=== PATIENT | male | born 1995 | race Caucasian/White ===

== ENCOUNTER 2016-05-30 14:22 | Emergency (ER) | payer OTHER ==
--- NOTE | 2016-05-30 14:39 | CPEKG ---
Heart Rate: 77 RR Interval: 779 P-R Interval: 144 QRSD Interval: 92 QT Interval: 376 QTC Interval: 426 P [place]: 18 QRS [place]: 44 T Wave [place]: 47 EKG Severity - NORMAL ECG - EKG Impression: SINUS RHYTHM EKG Impression: ST ELEV, PROBABLE NORMAL EARLY REPOL PATTERN Electronically Signed By: Mp Mary 30-May-2016 21:57:35
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
[2016-05-30] MEDS ORDERED: NS 1,000 ML IV ONE (15:09)
[2016-05-30] MEDS ORDERED: LORazepam 2 MG/ML INJ IVP ONE (15:09)
[2016-05-30] MEDS ORDERED: LORazepam 2 MG/ML INJ ONE (15:11)
[2016-05-30 15:19] LABS: % IMMATURE GRANULYOCYTES 0.7 % (0.0-1.1); ABSOLUTE IMMATURE GRANULOCYTES 0.08 10^3/uL (0.00-0.10); ADD DIFF? NO; ADD MORPH? NO; ADD SCAN? NO; ATYPICAL LYMPHOCYTE FLAG 10 (0-99); FRAGMENT RBC FLAG 0 (0-99); HEMATOCRIT 57.3 % (40.0-51.0); HEMOGLOBIN 18.7 g/dL (13.7-17.5); LEFT SHIFT FLG 0 (0-99); LIPEMIA HEMOLYSIS FLAG 80 (0-99); MEAN CELL HEMOGLOBIN 31.3 pg (27.9-34.1); MEAN CELL HEMOGLOBIN CONCENTR. 32.6 g/dL (32.4-36.7); MEAN CELL VOLUME 95.8 fL (81.5-99.8); MEAN PLATELET VOLUME 9.7 fL (8.7-11.7); PLATELET CLUMPS FLAG 0 (0-99); PLATELET COUNT 307 10^3/uL (150-400); RED BLOOD CELL COUNT 5.98 10^6/uL (4.40-6.38); RED CELL DISTRIBUTION WIDTH 12.9 % (11.5-15.2)
[2016-05-30 15:27] LABS: ANION GAP 36 mEq/L (8-16); CALCIUM 10.8 mg/dL (8.5-10.4); CHLORIDE 102 mEq/L (97-110); CREATININE 1.4 mg/dL (0.7-1.3); GLOMERULAR FILTRATION RATE > 60; GLUCOSE 205 mg/dL (70-100); SODIUM 147 mEq/L (134-144)
[2016-05-30 15:34] LABS: CARBON DIOXIDE 9 mEq/l (22-31)
[2016-05-30 16:48] VITALS: BP 112/78; PULSE 87; RESP 14; TEMP 98.5; O2SAT 99
== END 2016-05-30 16:42 | disposition home or self-care (01) ==
DX: R56.9 Unspecified convulsions (principal); F10.230 Alcohol dependence with withdrawal, uncomplicated
CPT/HCPCS: 96374; J2060

== ENCOUNTER 2016-06-08 17:50 | Emergency (ER) | payer OTHER ==
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
[2016-06-08 21:45] VITALS: RESP 16
[2016-06-08] MEDS ORDERED: CEPHALEXIN 500 MG CAP PO ONE (23:22)
[2016-06-08 23:34] VITALS: BP 139/78; PULSE 98; TEMP 98.2; O2SAT 95
== END 2016-06-08 23:40 | disposition home or self-care (01) ==
LOC: EDUNIT#
DX: S02.80XA Fracture of other specified skull and facial bones, unspecified side, initial encounter for closed fracture (principal); Y04.0XXA Assault by unarmed brawl or fight, initial encounter; Y93.89 Activity, other specified